=== PATIENT | female | born 1980 | race Caucasian/White ===

== ENCOUNTER 2017-03-21 13:04 | Emergency (ER) | payer MEDICAID, OTHER ==
--- NOTE | 2017-03-21 13:34 | EDM.PDOC ---
ED HPI GENERAL MEDICAL PROBLEM - General Chief Complaint: Lower Extremity Injury/Pain Stated Complaint: LT LEG HURTS Time Seen by Provider: 03/21/17 13:45 Source of Information: Reports: Patient History Limitations: Reports: No Limitations - History of Present Illness INITIAL COMMENTS - FREE TEXT/NARRATIVE: HISTORY AND PHYSICAL: History of present illness: [Patient comes to the emergency room complaining of left knee pain. She moved to the area from [place] on Saturday and has not yet established primary medical care. 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 She jumped from the bed of the truck to the ground and felt her knee twist. She has had pain and swelling to her left knee since that time. She was evaluated in the [facility] ER at the time of the incident and had negative x-rays. She was advised to follow-up with a local orthopedist for an MRI. She did not do this and instead decided to moved to [place]. She complains of pain to the medial aspect of her left knee and a sensation that her knee could give out at anytime. She denies numbness and tingling down her leg or into her foot. Has no other complaints or concerns at this time. She has been using a knee immobilizer but she does not wear it to the emergency room today.] Review of systems: As per history of present illness and below otherwise all systems reviewed and negative. Past medical history: As per history of present illness and as reviewed below otherwise noncontributory. Surgical history: As per history of present illness and as reviewed below otherwise noncontributory. Social history: No reported history of drug or alcohol abuse. Family history: As per history of present illness and as reviewed below otherwise noncontributory. Physical exam: HEENT: Atraumatic, normocephalic. Extremities: Mild swelling to patellar area of left knee. She is tender with palpation over medial and lateral knee worse medially. No instability. Anterior posterior drawer test is negative. negative for cords or calf pain. Neurovascular unremarkable. Neuro: Awake, alert, oriented. Motor and sensory unremarkable throughout. Exam nonfocal. Diagnostics: [Left knee x-ray Impression: [Left knee pain] Plan: [Reviewed with patient that her knee x-ray shows moderate suprapatellar joint effusion and no bony abnormality. Recommended that she follow-up with the orthopedist. Anti-inflammatories in the meantime, rest ice elevate and wear knee immobilizer. She is in agreement with today's plan all questions are answered and concerns are addressed.] Definitive disposition and diagnosis as appropriate pending reevaluation and review of above. Left Knee Pain Score (Numeric/FACES): 5 - Related Data Allergies Allergy/AdvReac Type Severity Reaction Status Date / Time cephalexin Allergy Nausea Unverified 03/21/17 13:33 cephalexin monohydrate Allergy Rash Verified 03/21/17 13:33 [From Keflex] ketorolac tromethamine Allergy Rash Verified 03/21/17 13:33 [From Toradol] Home Meds: Home Meds Gabapentin [Neurontin] 100 mg PO TID 02/14/15 [History] traMADol HCl [Tramadol HCl] 50 mg PO Q6H PRN 02/14/15 [History] Albuterol Sulfate [Albuterol Sulfate HFA] 8.5 gm IH PRN 03/02/15 [History] DULoxetine [Cymbalta] 60 mg PO DAILY 03/02/15 [History] Past Medical History - Past Health History Medical/Surgical History: Denies Medical/Surgical History Other Musculoskeletal History: lunbar disk fracture 2014 - Past Surgical History Other Musculoskeletal Surgeries/Procedures:: disc removed Social & Family History - Tobacco Use Smoking Status *Q: Unknown Ever Smoked Years of Tobacco use: 10 Packs/Tins Daily: 0.5 Second Hand Smoke Exposure: Yes - Alcohol Use Days Per Week of Alcohol Use: 0 Number of Drinks Per Day: 1 Total Drinks Per Week: 0 - Recreational Drug Use Recreational Drug Use: No - Living Situation & Occupation Living situation: Reports: with Family, Occupation: Employed Review of Systems - Review of Systems Review Of Systems: ROS reveals no pertinent complaints other than HPI. ED EXAM, GENERAL - Physical Exam Exam: See Below Course - Vital Signs Last Recorded V/S: Last Vital Signs Temp 98.1 F 03/21/17 15:46 Pulse 90 03/21/17 15:46 Resp 16 03/21/17 15:46 BP 118/72 03/21/17 15:46 Pulse Ox 98 03/21/17 15:46 - Orders/Labs/Meds Orders: Active Orders 24 hr Category Date Time Status Knee 3V Lt [CR] Stat Exams 03/21/17 13:45 Taken Departure - Departure Time of Disposition: 15:15 Disposition: Home, Self-Care 01 Condition: Good Clinical Impression: Left knee pain - Discharge Information Instructions: Knee Pain Referrals: PCP,None [Primary Care Provider] - Forms: ED Department Discharge Additional Instructions: The following information is given to patients seen in the emergency department who are being discharged to home. This information is to outline your options for follow-up care. We provide all patients seen in our emergency department with a follow-up referral. The need for follow-up, as well as the timing and circumstances, are variable depending upon the specifics of your emergency department visit. If you don't have a primary care physician on staff, we will provide you with a referral. We always advise you to contact your personal physician following an emergency department visit to inform them of the circumstance of the visit and for follow-up with them and/or the need for any referrals to a consulting specialist. The emergency department will also refer you to a specialist when appropriate. This referral assures that you have the opportunity for follow-up care with a specialist. All of these measure are taken in an effort to provide you with optimal care, which includes your follow-up. Under all circumstances we always encourage you to contact your private physician who remains a resource for coordinating your care. When calling for follow-up care, please make the office aware that this follow-up is from your recent emergency room visit. If for any reason you are refused follow-up, please contact the [facility] emergency department at and asked to speak to the emergency department charge nurse. [facility] [address] [place] [address], [address] [place] [address] Call the above listed clinic to schedule an appointment to follow-up. Alternate Tylenol and ibuprofen for discomfort. Ice, wear your knee brace,keep leg elevated, rest your leg. Return to ER as needed as discussed. - My Orders Last 24 Hours: My Active Orders 03/21/17 13:45 Knee 3V Lt [CR] Stat - Assessment/Plan Last 24 Hours: My Active Orders 03/21/17 13:45 Knee 3V Lt [CR] Stat
[2017-03-21 15:47] VITALS: BP 118/72
--- NOTE | 2017-03-22 10:19 | CR ---
EXAM DATE: 03/21/17 PATIENT'S AGE: 36 Patient: JENNIFER KEVIN Facility: [place], [place] Site . Site : 1980 Study: XRay Knee [id number]/28/2017 2:43:49 PM Ordering Physician: Doctor Jordan Final Report: HISTORY: Pain. FINDINGS: Standing AP and lateral radiographs of the left knee with sunrise view demonstrates maintenance of the joint spaces. There is a moderate suprapatellar joint effusion. No fracture or dislocation is seen. IMPRESSION: Moderate suprapatellar joint effusion without acute bony abnormality. Dictated by Yanet Narvaez MD @ 03/21/2017 2:53:38 PM Dictated by: Yanet Narvaez MD @ 03/21/2017 14:53:44 (Electronic Signature) Report Signed by Proxy. MTDGale
== END 2017-03-21 16:07 | disposition home or self-care (01) ==
LOC: MW.ED 13:04
DX: M25.562 Pain in left knee (principal); Z88.1 Allergy status to other antibiotic agents; Z88.6 Allergy status to analgesic agent; Z79.899 Other long term (current) drug therapy
CPT/HCPCS: 73562-26-LT; 73562-LT; 99282; 99283

== ENCOUNTER 2017-04-17 12:31 | Emergency (ER) | payer MEDICAID ==
[2017-04-17] MEDS ORDERED: Sodium Chloride 0.9% 10 ML Syringe FLUSH PRN (12:42)
[2017-04-17] MEDS ORDERED: Famotidine 20 MG/2 ML SDV IVPUSH ONE (12:42)
[2017-04-17] MEDS ORDERED: Sodium Chloride 0.9% 2.5 ML Syringe FLUSH PRN (12:42)
[2017-04-17] MEDS ORDERED: Ondansetron 4 MG/2 ML SDV IVPUSH ONE (12:42)
[2017-04-17] MEDS ORDERED: Sodium Chloride 0.9% 1,000 ML IV ONE (12:42)
[2017-04-17] MEDS ORDERED: Ketorolac 30 MG/ML SDV IVPUSH ONE (12:42)
--- NOTE | 2017-04-17 12:57 | EDM.PDOC ---
ED HPI GENERAL MEDICAL PROBLEM - General Chief Complaint: Abdominal Pain Stated Complaint: BAD STOMACH PAIN Time Seen by Provider: 04/17/17 12:35 Source of Information: Reports: Patient History Limitations: Reports: No Limitations - History of Present Illness INITIAL COMMENTS - FREE TEXT/NARRATIVE: History of present illness: []Patient started having upper abdominal pain that feels like a "ball" at 8 PM last night. She waited thinking her pain was improved but continued to worsening until she started vomiting. He denies any diarrhea. Patient states she 's had fevers and chills however did not measure a temperature. Patient complains of urinating more than normal but does not have pain with urination and states she has not been drinking much fluids as she continues to vomit. Patient has had her gallbladder removed and denies feeling pain similar to this in the past. Review of systems: As per history of present illness and below otherwise all systems reviewed and negative. Past medical history: As per history of present illness and as reviewed below otherwise noncontributory. Surgical history: As per history of present illness and as reviewed below otherwise noncontributory. Social history: No reported history of drug or alcohol abuse. Family history: As per history of present illness and as reviewed below otherwise noncontributory. Physical exam: General: Well developed, well nourished in NAD HEENT: Atraumatic, normocephalic, pupils reactive, negative for conjunctival pallor or scleral icterus, mucous membranes moist, throat clear, neck supple, nontender, trachea midline. Lungs: Clear to auscultation, breath sounds equal bilaterally, chest nontender. Heart: S1S2, regular, negative for clicks, rubs, or JVD. Abdomen: Soft, nondistended, nontender. Negative for masses or hepatosplenomegaly. Negative for costovertebral tenderness. Pelvis: Stable nontender. Genitourinary: Deferred. Rectal: Deferred. Extremities: Atraumatic, negative for cords or calf pain. Neurovascular unremarkable. Neuro: Awake, alert, oriented. Cranial nerves II through XII unremarkable. Cerebellum unremarkable. Motor and sensory unremarkable throughout. Exam nonfocal. Diagnostics: []Labs and UA checked patient's UA is positive for nitrites Therapeutics: []IV fluids, Pepcid, morphine for pain Impression: []UTI Plan: []Macrobid, Tylenol Motrin for pain Definitive disposition and diagnosis as appropriate pending reevaluation and review of above. Abdominal Pain Score (Numeric/FACES): 10 - Related Data Allergies Allergy/AdvReac Type Severity Reaction Status Date / Time cephalexin Allergy Nausea Verified 04/17/17 12:39 cephalexin monohydrate Allergy Rash Verified 04/17/17 12:39 [From Keflex] ketorolac tromethamine Allergy Rash Verified 04/17/17 12:39 [From Toradol] Home Meds: Home Meds Gabapentin [Neurontin] 100 mg PO TID 02/14/15 [History] traMADol HCl [Tramadol HCl] 50 mg PO Q6H PRN 02/14/15 [History] Albuterol Sulfate [Albuterol Sulfate HFA] 8.5 gm IH PRN 03/02/15 [History] DULoxetine [Cymbalta] 60 mg PO DAILY 03/02/15 [History] Nitrofurantoin Macrocrystal [Macrodantin] 100 mg PO BID #14 capsule 04/17/17 [Rx ] Past Medical History - Past Health History Medical/Surgical History: Denies Medical/Surgical History Other Musculoskeletal History: lunbar disk fracture 2014 - Past Surgical History Other Musculoskeletal Surgeries/Procedures:: disc removed Social & Family History - Family History Family Medical History: Noncontributory - Tobacco Use Smoking Status *Q: Unknown Ever Smoked Years of Tobacco use: 10 Packs/Tins Daily: 0.5 Second Hand Smoke Exposure: Yes - Alcohol Use Days Per Week of Alcohol Use: 0 Number of Drinks Per Day: 1 Total Drinks Per Week: 0 - Recreational Drug Use Recreational Drug Use: No - Living Situation & Occupation Living situation: Reports: with Family, Occupation: Employed ED ROS GENERAL - Review of Systems Review Of Systems: See Below (See history of present illness) ED EXAM, GI/ABD - Physical Exam Exam: See Below (See history of present illness) Course - Vital Signs Last Recorded V/S: Last Vital Signs Temp 36.5 C 04/17/17 12:39 Pulse 87 04/17/17 12:39 Resp 16 04/17/17 12:39 BP 115/74 04/17/17 12:39 Pulse Ox - Orders/Labs/Meds Orders: Active Orders 24 hr Category Date Time Status Sodium Chloride 0.9% [Saline Flush] Med 04/17/17 12:42 Active 10 ml FLUSH ASDIRECTED PRN Sodium Chloride 0.9% [Saline Flush] Med 04/17/17 12:42 Active 2.5 ml FLUSH ASDIRECTED PRN Saline Lock Insert [OM.PC] Stat Oth 04/17/17 12:42 Ordered Medication Orders Sodium Chloride (Saline Flush) 10 ml FLUSH ASDIRECTED PRN PRN Reason: Keep Vein Open Sodium Chloride (Saline Flush) 2.5 ml FLUSH ASDIRECTED PRN PRN Reason: Keep Vein Open Labs: Laboratory Tests 04/17/17 04/17/17 04/17/17 Range/Units 12:50 12:50 13:45 WBC 12.38 H (4.0-11.0) K/uL RBC 4.66 (4.30-5.90) M/uL Hgb 13.6 (12.0-16.0) g/dL Hct 41.0 (36.0-46.0) % MCV 88.0 (80.0-98.0) fL MCH 29.2 (27.0-32.0) pg MCHC 33.2 (31.0-37.0) g/dL RDW Std Deviation 47.3 (28.0-62.0) fl RDW Coeff of Sussy 15 (11.0-15.0) % Plt Count 271 (150-400) K/uL MPV 9.00 (7.40-12.00) fL Neut % (Auto) 74.8 (48.0-80.0) % Lymph % (Auto) 15.0 L (16.0-40.0) % Brule % (Auto) 9.1 (0.0-15.0) % Eos % (Auto) 0.9 (0.0-7.0) % Baso % (Auto) 0.2 (0.0-1.5) % Neut # (Auto) 9.3 H (1.4-5.7) K/uL Lymph # (Auto) 1.9 (0.6-2.4) K/uL Brule # (Auto) 1.1 H (0.0-0.8) K/uL Eos # (Auto) 0.1 (0.0-0.7) K/uL Baso # (Auto) 0.0 (0.0-0.1) K/uL Nucleated RBC % 0.0 /100WBC Nucleated RBCs # 0 K/uL Sodium 134 L (136-146) mmol/L Potassium 3.6 (3.5-5.1) mmol/L Chloride 104 (98-110) mmol/L Carbon Dioxide 24 (21-31) mmol/L BUN 9 (6.0-23.0) mg/dL Creatinine 0.7 (0.6-1.5) mg/dL Est Cr Clr Drug Dosing 100.94 mL/min Estimated GFR (MDRD) > 60.0 ml/min Glucose 103 (60-110) mg/dL Calcium 8.8 (8.8-10.8) mg/dL Total Bilirubin 1.3 (0.1-1.5) mg/dL AST 40 (5-40) IU/L ALT 53 (8-54) IU/L Alkaline Phosphatase 86 (40-150) Total Protein 7.3 (6.0-8.0) g/dL Albumin 3.9 (3.5-5.0) g/dL Globulin 3.4 (2.0-3.5) g/dL Albumin/Globulin Ratio 1.2 L (1.3-2.8) Lipase 18 (7-80) U/L Urine Color YELLOW Urine Appearance SLT CLOUDY Urine pH 6.0 (5.0-8.0) Ur Specific Raven 1.010 (1.001-1.035) Urine Protein NEGATIVE (NEGATIVE) mg/dL Urine Glucose (UA) NEGATIVE (NEGATIVE) mg/dL Urine Ketones NEGATIVE (NEGATIVE) mg/dL Urine Occult Blood NEGATIVE (NEGATIVE) Urine Nitrite POSITIVE H (NEGATIVE) Urine Bilirubin NEGATIVE (NEGATIVE) Urine Urobilinogen 0.2 (<2.0) EU/dL Ur Leukocyte Esterase TRACE (NEGATIVE) Urine RBC 0-1 (0-2/HPF) Urine WBC 1-3 (0-5/HPF) Ur Epithelial Cells FEW (NONE-FEW) Urine Bacteria 2+ H (NEGATIVE) Meds: Medications Generic Name Dose Route Start Last Admin Trade Name Freq PRN Reason Stop Dose Admin Sodium Chloride 10 ml 04/17/17 12:42 Saline Flush FLUSH ASDIRECTED PRN Keep Vein Open Sodium Chloride 2.5 ml 04/17/17 12:42 Saline Flush FLUSH ASDIRECTED PRN Keep Vein Open Discontinued Medications Generic Name Dose Route Start Last Admin Trade Name Elle PRN Reason Stop Dose Admin Famotidine 20 mg 04/17/17 12:42 04/17/17 12:58 Pepcid IVPUSH 04/17/17 12:43 20 mg ONETIME ONE Administration Sodium Chloride 1,000 mls @ 999 mls/hr 04/17/17 12:42 Normal Saline IV 04/17/17 13:42 .Bolus ONE Ketorolac Tromethamine 30 mg 04/17/17 12:42 04/17/17 13:11 Toradol IVPUSH 04/17/17 12:43 Not Given ONETIME ONE Morphine Sulfate 4 mg 04/17/17 14:28 Morphine IVPUSH 04/17/17 14:29 ONETIME ONE Ondansetron HCl 4 mg 04/17/17 12:42 04/17/17 12:58 Zofran IVPUSH 04/17/17 12:43 4 mg ONETIME ONE Administration Departure - Departure Time of Disposition: 14:35 Disposition: Home, Self-Care 01 Condition: Good Clinical Impression: UTI (urinary tract infection) Qualifiers: Urinary tract infection type: site unspecified Hematuria presence: without hematuria Qualified Code(s): N39.0 - Urinary tract infection, site not specified - Discharge Information Prescriptions: Nitrofurantoin Macrocrystal [Macrodantin] 100 mg PO BID #14 capsule Referrals: PCP,None [Primary Care Provider] - Forms: ED Department Discharge Additional Instructions: The following information is given to patients seen in the emergency department who are being discharged to home. This information is to outline your options for follow-up care. We provide all patients seen in our emergency department with a follow-up referral. The need for follow-up, as well as the timing and circumstances, are variable depending upon the specifics of your emergency department visit. If you don't have a primary care physician on staff, we will provide you with a referral. We always advise you to contact your personal physician following an emergency department visit to inform them of the circumstance of the visit and for follow-up with them and/or the need for any referrals to a consulting specialist. The emergency department will also refer you to a specialist when appropriate. This referral assures that you have the opportunity for follow-up care with a specialist. All of these measure are taken in an effort to provide you with optimal care, which includes your follow-up. Under all circumstances we always encourage you to contact your private physician who remains a resource for coordinating your care. When calling for follow-up care, please make the office aware that this follow-up is from your recent emergency room visit. If for any reason you are refused follow-up, please contact the [facility] Emergency Department at and asked to speak to the emergency department charge nurse. Macrobid twice a day, Tylenol or Motrin for pain follow-up with PMD or return if symptoms worsen or change. [facility] [address] [place] [address] - My Orders Last 24 Hours: My Active Orders 04/17/17 12:42 Sodium Chloride 0.9% [Saline Flush] 10 ml FLUSH ASDIRECTED PRN Sodium Chloride 0.9% [Saline Flush] 2.5 ml FLUSH ASDIRECTED PRN Saline Lock Insert [OM.PC] Stat - Assessment/Plan Last 24 Hours: My Active Orders 04/17/17 12:42 Sodium Chloride 0.9% [Saline Flush] 10 ml FLUSH ASDIRECTED PRN Sodium Chloride 0.9% [Saline Flush] 2.5 ml FLUSH ASDIRECTED PRN Saline Lock Insert [OM.PC] Stat
[2017-04-17 13:26] LABS: CHLORIDE,CL 104 mmol/L (98-110); SODIUM,NA 134 mmol/L (136-146)
[2017-04-17] MEDS ORDERED: Morphine 2 MG/ML Syringe IVPUSH ONE (14:28)
[2017-04-17 15:42] VITALS: BP 96/49
== END 2017-04-17 14:37 | disposition home or self-care (01) ==
LOC: MW.ED 12:31
DX: N39.0 Urinary tract infection, site not specified (principal)
CPT/HCPCS: 36415; 80053; 81001; 83690; 85025; 96361; 96374; 96375; 99284; J2270; J2405; J7040

== ENCOUNTER 2017-05-08 10:30 | Day surgery (SDC) | payer MEDICAID ==
[~2017-05-08 10:30] MED LIST: Acetaminophen/HYDROcodone 325-5 MG Tab PO PRN; Clindamycin Phosphate in D5W 900 MG in Premix Bag 1 BAG IV SCH; Lactated Ringers 1,000 ML IV SCH; Lidocaine 1% 20 ML MDV ONE
[2017-05-08] MEDS ORDERED: Lidocaine 2% 5 ML SDV ONE (11:59)
[2017-05-08] MEDS ORDERED: Midazolam 1 MG/ML 2 ML SDV ONE (11:59)
[2017-05-08] MEDS ORDERED: Propofol 200 MG/20 ML SDV ONE ×4 (11:59→15:42)
[2017-05-08] MEDS ORDERED: fentaNYL 100 MCG/2 ML SDV ONE ×3 (11:59→16:17)
[2017-05-08] MEDS ORDERED: Ondansetron 4 MG/2 ML SDV ONE (12:00)
--- NOTE | 2017-05-08 12:00 | PCM.PREANE ---
Preanesthetic Assessment - Procedure Proposed Procedure: Left knee arthroscopic repair and ACL reconstruction - Anesthesia/Transfusion/Family Hx Anesthesia History: Prior Anesthesia Without Reaction Other Type of Anesthesia Reaction Comment: "my mother has a hard time breathing under anesthesia" Transfusion History: No Prior Transfusion(s) Additional History: 4 weeks s/p quitting smoking - Review of Systems General: Other (pain in left knee) Pulmonary: Other (former smoker) Cardiovascular: No Symptoms Gastrointestinal: No Symptoms Neurological: Gait Disturbance (due to knee-left) Other: Reports: None - Physical Assessment NPO Status Date: 05/07/17 NPO Status Time: 23:00 O2 Sat by Pulse Oximetry: 97 Respiratory Rate: 16 Vital Signs: Last Vital Signs Temp 98.4 F 05/08/17 11:27 Pulse 77 05/08/17 11:27 Resp 16 05/08/17 11:27 BP 89/52 L 05/08/17 11:27 Pulse Ox 97 05/08/17 11:27 Height: 5 ft 5 in Weight: 204 lb ASA Class: 2 Mental Status: Alert & Oriented x3 Airway Class: Mallampati = 1 Dentition: Reports: Normal Dentition, Wind Point(s) (frontal uppers) Thyro-Mental Finger Breadths: 4 Mouth Opening Finger Breadths: 3 ROM/Head Extension: Full Lungs: Clear to Auscultation, Normal Respiratory Effort Cardiovascular: Regular Rate, Regular Rhythm, No Murmurs - Allergies Allergies/Adverse Reactions: Allergies Allergy/AdvReac Type Severity Reaction Status Date / Time cephalexin Allergy Nausea Verified 05/02/17 09:57 cephalexin monohydrate Allergy Nausea Verified 05/02/17 09:55 [From Keflex] ketorolac tromethamine Allergy Headache Verified 05/02/17 09:55 [From Toradol] - Blood Blood Available: No Product(s) Available: None - Anesthesia Plan Pre-Op Medication Ordered: None - Acknowledgements Anesthesia Type Planned: General Anesthesia Pt an Appropriate Candidate for the Planned Anesthesia: Yes Alternatives and Risks of Anesthesia Discussed w Pt/Guardian: Yes Pt/Guardian Understands and Agrees with Anesthesia Plan: Yes PreAnesthesia Questionnaire - Past Health History Medical/Surgical History: Denies Medical/Surgical History HEENT History: Reports: Allergic Rhinitis, Other (See Below) Other HEENT History: wears glasses, has top front partial Cardiovascular History: Reports: None Respiratory History: Reports: Asthma Gastrointestinal History: Reports: None Genitourinary History: Reports: None [employer] History: Reports: Musculoskeletal History: Reports: Fracture Other Musculoskeletal History: hx of fx collarbone and rt arm Neurological History: Reports: Migraines Psychiatric History: Reports: Depression Endocrine/Metabolic History: Reports: Obesity/BMI 30+ Dermatologic History: Reports: Eczema - Past Surgical History Head Surgeries/Procedures: Reports: None HEENT Surgical History: Reports: None GI Surgical History: Reports: Cholecystectomy Female Surgical History: Reports: Tubal Ligation Neurological Surgical History: Reports: Lumbar Spine Other Neurological Surgeries/Procedures: hx back surgery Other Musculoskeletal Surgeries/Procedures:: disc removed - SUBSTANCE USE Smoking Status *Q: Former Smoker Tobacco Use Within Last Twelve Months: Cigarettes Second Hand Smoke Exposure: Yes Days Per Week of Alcohol Use: 0 Number of Drinks Per Day: 1 Total Drinks Per Week: 0 Recreational Drug Use History: No - HOME MEDS Home Medications: Home Meds Albuterol Sulfate [Albuterol Sulfate HFA] 1 - 2 puff IH ASDIRECTED PRN 03/02/15 [History] Diclofenac Sodium [Voltaren] 75 mg PO BID PRN 05/02/17 [History] Ibuprofen [Motrin] 4 tab PO ASDIRECTED PRN 05/02/17 [History] - CURRENT (IN HOUSE) MEDS Current Meds: Current Medications Hydrocodone Bitart/Acetaminophen ([place] 325-5 Mg) 1 - 2 tab PO Q4H PRN PRN Reason: Pain Lactated Ringer's (Ringers, Lactated) 1,000 mls @ 100 mls/hr IV ASDIRECTED [facility] Last Admin: 05/08/17 11:15 Dose: 100 mls/hr Clindamycin Phosphate 900 mg/ (Premix) 50 mls @ 100 mls/hr IV ONCALL [facility] Last Admin: 05/08/17 11:24 Dose: 100 mls/hr Ketorolac Tromethamine (Toradol) 10 mg PO Q6H [facility] Stop: 05/13/17 08:01 Discontinued Medications Lidocaine HCl (Xylocaine 1%) Confirm Administered Dose 20 ml .ROUTE .STK-MED ONE Stop: 05/07/17 15:03
[2017-05-08] MEDS ORDERED: fentaNYL 250 MCG/5 ML SDV ONE (12:01)
[2017-05-08] MEDS ORDERED: Succinylcholine/Normal Saline 200 MG/10 ML Syringe ONE (12:01)
[2017-05-08] MEDS ORDERED: HYDROmorphone 2 MG/ML Syringe ONE (12:05)
[2017-05-08] MEDS ORDERED: HYDROmorphone 2 MG/ML Syringe IVPUSH ONE (15:20)
[2017-05-08] MEDS ORDERED: Acetaminophen/HYDROcodone 325-10 MG Tab PO PRN (16:55)
[2017-05-08] MEDS ORDERED: Promethazine 25 MG/ML SDV IM ONE (17:02)
--- NOTE | 2017-05-08 17:18 | PCM.OPNOTE ---
- General Post-Op/Procedure Note Date of Surgery/Procedure: 05/08/17 Operative Procedure(s): L knee arthroscopy with arthroscopically aided ACL reconstruction using autograft (quad tendon) Post-Op Diagnosis: L knee acl tear Anesthesia Technique: General ET Tube Primary Surgeon: Eun Grayson Metal Tile Lather: Christ Aldana in mLs: 20 Condition: Good Free Text/Narrative:: we=[id number] min #[id number]
[2017-05-08] MEDS: fentaNYL 100 MCG/2 ML SDV IVPUSH PRN ×2 (17:30→17:37)
--- NOTE | 2017-05-08 17:49 | PCM.POSTAN ---
POST ANESTHESIA ASSESSMENT - MENTAL STATUS Mental Status: Alert, Oriented - RESPIRATORY Respiratory Status: Respiratory Rate WNL, Airway Patent, O2 Saturation Stable - CARDIOVASCULAR CV Status: Pulse Rate WNL, Blood Pressure Stable - GASTROINTESTINAL GI Status: Nauseau (treated with Zofran and Phenergan) - PAIN Pain Score: 5 - POST OP HYDRATION Hydration Status: Adequate & Stable
[2017-05-08] MEDS: Ketorolac 10 MG Tab PO SCH ×2 (18:03→18:04)
[2017-05-08] MEDS ORDERED: Ketorolac 30 MG/ML SDV IVPUSH ONE (20:55)
[2017-05-08] MEDS ORDERED: Ondansetron 4 MG/2 ML SDV IVPUSH ONE (20:56)
--- NOTE | 2017-05-08 20:56 | PCM48HPAN ---
Post Anesthesia Note - EVALUATION WITHIN 48HRS OF ANESTHETIC Vital Signs in Normal Range: Yes Patient Participated in Evaluation: Yes Respiratory Function Stable: Yes Airway Patent: Yes Cardiovascular Function Stable: Yes Hydration Status Stable: Yes Pain Control Satisfactory: Yes Nausea and Vomiting Control Satisfactory: Yes Mental Status Recovered: Yes
[2017-05-08 21:54] VITALS: BP 109/71
--- NOTE | 2017-05-08 22:22 | OR ---
SURGEON: Eun Grayson MD DATE OF PROCEDURE: 05/08/2017 PREOPERATIVE DIAGNOSIS: Left knee ACL tear. POSTOPERATIVE DIAGNOSIS: Left knee ACL tear. PROCEDURE: Left knee arthroscopy with arthroscopically aided anterior cruciate ligament reconstruction using autograft (quad tendon). TUMBLING AND ROLLING SUPERVISOR: Christ Aldana PA-C. ANESTHESIA: General. ESTIMATED BLOOD LOSS: 10 mL. TOURNIQUET TIME: 116 minutes. COMPLICATIONS: None. DVT PROPHYLAXIS: PAS boot to the nonoperative leg. IMPLANTS USED: Arthrex TightRope fixation system for ACL reconstruction. BRIEF HISTORY: Leelee is a 36-year-old female who injured her left knee. An MRI did confirm a tear of the ACL. She was treated initially with physical therapy. She continued to have episodes of instability. Due to her lack of response to conservative treatment, I did recommend surgical intervention. The risks and goals of the procedure were discussed with the patient and were documented preoperatively. She agreed to proceed. DESCRIPTION OF PROCEDURE: The patient was properly identified and brought to the operating room. She was transferred from the OR cart and placed on the operating room table in a supine position. General anesthesia was administered. After adequate anesthesia was obtained, a well-padded tourniquet was applied to the left lower extremity. The left lower extremity was then prepped in a standard fashion using ChloraPrep solution. It was then sterilely draped. A time-out was performed to ensure correct site and procedure. Preoperative antibiotics were given. The surgical site had been marked preoperatively. An Esmarch was used to exsanguinate the left lower extremity, and the tourniquet was inflated to 250 mmHg. A lateral portal arthrotomy was established. Blunt trocar and cannula were introduced into the suprapatellar pouch. Camera, inflow, and outflow were assembled. No significant synovitis was noted. The patellofemoral joint was then visualized. She had some chondromalacia along the central portion of the patella consistent with grade 2. The trochlea showed no significant degenerative findings. The patella appeared to track centrally. I then extended down the lateral and medial gutter. No loose bodies were identified. I then entered the medial compartment. A medial portal arthrotomy was established. A blunt probe was inserted. The medial meniscus showed no signs of instability or tearing. The joint surfaces showed no significant degenerative findings. I then entered the notch. The ACL did show a complete tear. There was no attachment to the lateral femoral condyle. The PCL appeared intact. I then entered the lateral compartment. The lateral meniscus was probed. The cartilage showed no significant degenerative changes. No tearing of the meniscus was found. I elected to proceed with anterior cruciate ligament reconstruction. A portion of the ACL was removed. The insertion point on the tibia was kept to help with proprioceptive fibers. The wall of the lateral femoral condyle was then cleared. A notchplasty was performed to ensure better visualization. A large curette was used to identify the posterior aspect of the femur. All soft tissue was cleared. All instruments were then removed from the knee joint. I then turned my attention to the quadriceps tendon. The border of the VMO was identified along with the superior border of the patella. An incision was made extending from the superior border of the patella proximally. The subcutaneous tissues were dissected down to the level of the tendon. I was able to use retractors to easily visualize the course of the quadriceps tendon. The center of the lateral portion was then identified. A 9 mm parallel blade was used to incise the quadriceps tendon proximally. The portion of the quadriceps tendon attached to the patella was then sharply dissected with a #15 blade scalpel. I was able to dissect free the distal end of the quadriceps tendon at the attachment to the patella. 20 mm was then identified, and a whipstitch was used to prepare the distal end. The quadriceps tendon was then dissected proximally and was cut at approximately 70 mm of length. A small rent in the capsule was noted along the distal portion of the incision, and this was closed with 0 Vicryl. The quadriceps tendon was not re-approximated with suture. The subcutaneous tissues were closed with 2-0 Vicryl, and the skin was closed with a running 4-0 Monocryl suture. We then turned our attention back to the knee. The knee scope was again inserted into the knee. The proximal tibial guide was used. An incision was made over the medial aspect of the proximal tibia, and the subcutaneous tissues were dissected down to the level of the bone. The periosteum was elevated. The guide was then placed. This was placed approximately 7 mm anterior to the PCL, parallel to the anterior horn of the lateral meniscus. A guide pin was placed. It was felt that the guide pin position was appropriate. The quadriceps tendon graft was prepared in the usual fashion on the back table. It did measure a diameter of 10 mm. The 10 mm reamer was then passed over the guide pin into the proximal tibia. All instruments were then removed. The posterior edge of the graft tunnel was prepared with a rasp. A shaver was placed to remove any loose bony debris. I then moved my camera to the medial portal. The medial wall of the lateral femoral condyle was then identified. The flip cutter guide was placed. A small incision was made through the IT band over the lateral aspect of the upper thigh. The guide pin was passed. Its position was checked, and it was felt to be in the appropriate position. The 10 mm flip cutter was then deployed, and a 30 mm tunnel was made through the femur. The cannula was kept in place as the loop suture was passed intra-articularly. Because of the graft's robustness and size, I elected to open the outer cortex of the tibia with an 11 mm reamer. This was performed without difficulty. The suture was then passed through the proximal tibia. The graft was then passed. The Endobutton was identified and was passed underneath the iliotibial band. This was placed flush to the cortex of the femur. C-arm imaging confirmed adequate deployment of the Endobutton. The graft was then passed into the femoral tunnel approximately 20 mm. We were able to visualize the position within the tibia as well, and it was felt that there was adequate graft in both the femur and tibia. Tension was applied to the tibial aspect of the graft, and the knee was taken through a range of motion. No pistoning was noted. There appeared to be no impingement with the ACL or notch. The knee was then brought into full extension. A hyperextension force was applied. The TightRope button was cinched to the proximal tibia anterior cortex. A Silvana's maneuver was performed which showed no anterior translation of the tibia. The sutures were tied over the TightRope button. Tourniquet was then deflated. The proximal tibia and subcutaneous tissues were closed with 2-0 Vicryl. The skin was closed with running 4-0 Monocryl suture. 4-0 nylon was used to close the portal sites, and subcutaneous tissues of the distal femoral incision were closed with 2-0 Vicryl. 4-0 Monocryl suture was used to close the skin on the remaining wounds, and Steri-Strips and Benzoin were applied. Xeroform gauze was placed over the wounds, and a bulky dressing was placed. She was placed into a [place]-type brace locking the knee in full extension. She was awakened from her anesthetic and transferred back to the operating room cart. She was brought to the recovery room in stable condition. All needle and sponge counts were correct. ALMA WARD /[id number] MICHA
--- NOTE | 2017-05-09 12:03 | CR ---
EXAMINATION: Left knee HISTORY: Surgery COMPARISON: MRI dated 04/05/2017 TECHNIQUE: Single fluoroscopic image provided FINDINGS/IMPRESSION: Single operative control film demonstrates postsurgical changes secondary to ACL repair.
== END 2017-05-08 21:45 | disposition home or self-care (01) ==
LOC: MW.SDS 10:30 → MW.ICU 18:23 → MW.SDS 21:45
PROVIDERS: ATTEND Orthopaedic Surgery
DX: S83.512A Sprain of anterior cruciate ligament of left knee, initial encounter (principal); M22.42 Chondromalacia patellae, left knee; F32.9 Major depressive disorder, single episode, unspecified; G43.909 Migraine, unspecified, not intractable, without status migrainosus; E66.9 Obesity, unspecified; Z68.33 Body mass index [BMI] 33.0-33.9, adult; Z88.6 Allergy status to analgesic agent; Z88.1 Allergy status to other antibiotic agents; Z87.891 Personal history of nicotine dependence; Z83.3 Family history of diabetes mellitus; Z98.890 Other specified postprocedural states; J45.909 Unspecified asthma, uncomplicated; Z79.899 Other long term (current) drug therapy; Z90.49 Acquired absence of other specified parts of digestive tract; Z98.51 Tubal ligation status
CPT/HCPCS: 29888; 76000; 81025; A9270; J1170; J2250; J2405; J2550; J3010; J7120; 01400; 88304; C1776; J2704

== ENCOUNTER 2017-07-10 10:39 | Emergency (ER) | payer MEDICAID ==
[2017-07-10 11:15] VITALS: BP 103/66
--- NOTE | 2017-07-10 11:34 | EDM.PDOC ---
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 Past medical history: As per history of present illness and as reviewed below otherwise noncontributory. Surgical history: As per history of present illness and as reviewed below otherwise noncontributory. Social history: No reported history of drug or alcohol abuse. Family history: As per history of present illness and as reviewed below otherwise noncontributory. Physical exam: HEENT: Atraumatic, normocephalic, pupils reactive, negative for conjunctival pallor or scleral icterus, mucous membranes moist, throat clear, neck supple, nontender, trachea midline. Lungs: Clear to auscultation, breath sounds equal bilaterally, chest nontender. Heart: S1S2, regular, negative for clicks, rubs, or JVD. Abdomen: Soft, nondistended, nontender. Negative for masses or hepatosplenomegaly. Negative for costovertebral tenderness. Pelvis: Stable nontender. Genitourinary: No mass scar or lesion tampon was removed without complication or complaint Rectal: Deferred. Extremities: Atraumatic, negative for cords or calf pain. Neurovascular unremarkable. Neuro: Awake, alert, oriented. Cranial nerves II through XII unremarkable. Cerebellum unremarkable. Motor and sensory unremarkable throughout. Exam nonfocal. 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 Lower Abdominal Pain Score (Numeric/FACES): 5 - Related Data Allergies Allergy/AdvReac Type Severity Reaction Status Date / Time cephalexin Allergy Nausea Verified 07/10/17 11:17 cephalexin monohydrate Allergy Nausea Verified 07/10/17 11:17 [From Keflex] ketorolac tromethamine Allergy Headache Verified 07/10/17 11:17 [From Toradol] Home Meds: Home Meds Albuterol Sulfate [Albuterol Sulfate HFA] 1 - 2 puff IH ASDIRECTED PRN 03/02/15 [History] Ibuprofen [Motrin] 4 tab PO ASDIRECTED PRN 05/02/17 [History] Past Medical History - Past Health History Medical/Surgical History: Denies Medical/Surgical History HEENT History: Reports: Allergic Rhinitis, Other (See Below) Other HEENT History: wears glasses, has top front partial Cardiovascular History: Reports: None Respiratory History: Reports: Asthma Gastrointestinal History: Reports: None Genitourinary History: Reports: None 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: Musculoskeletal History: Reports: Fracture Other Musculoskeletal History: hx of fx collarbone and rt arm Neurological History: Reports: Migraines Psychiatric History: Reports: Depression Endocrine/Metabolic History: Reports: Obesity/BMI 30+ Dermatologic History: Reports: Eczema - Past Surgical History Head Surgeries/Procedures: Reports: None HEENT Surgical History: Reports: None GI Surgical History: Reports: Cholecystectomy Female Surgical History: Reports: Tubal Ligation Neurological Surgical History: Reports: Lumbar Spine Other Neurological Surgeries/Procedures: hx back surgery Other Musculoskeletal Surgeries/Procedures:: disc removed Social & Family History - Family History Family Medical History: Noncontributory - Tobacco Use Smoking Status *Q: Current Every Day Smoker Years of Tobacco use: 15 Packs/Tins Daily: 0.4 Used Tobacco, but Quit: Yes Second Hand Smoke Exposure: No - Caffeine Use Caffeine Use: Reports: Soda - Alcohol Use Days Per Week of Alcohol Use: 0 Number of Drinks Per Day: 1 Total Drinks Per Week: 0 - Recreational Drug Use Recreational Drug Use: No - Living Situation & Occupation Living situation: Reports: with Family, Occupation: Employed ED ROS GENERAL - Review of Systems Review Of Systems: ROS reveals no pertinent complaints other than HPI. ED EXAM, GENERAL - Physical Exam Exam: See Below Course - Vital Signs Last Recorded V/S: Last Vital Signs Temp 96.7 F 07/10/17 11:08 Pulse 88 07/10/17 11:08 Resp 16 07/10/17 11:08 BP 103/66 07/10/17 11:08 Pulse Ox 99 07/10/17 11:08 Departure - Departure Time of Disposition: 11:34 Disposition: Home, Self-Care 01 Condition: Good Clinical Impression: Foreign body - Discharge Information Referrals: Arash Sherwood MD [Primary Care Provider] - Additional Instructions: Medication as prescribed Return if symptoms persist or worsen or if fever nausea vomiting chills sweats should they develop Follow-up with primary care as needed The following information is given to patients seen in the emergency department who are being discharged to home. This information is to outline your options for follow-up care. We provide all patients seen in our emergency department with a follow-up referral. The need for follow-up, as well as the timing and circumstances, are variable depending upon the specifics of your emergency department visit. If you don't have a primary care physician on staff, we will provide you with a referral. We always advise you to contact your personal physician following an emergency department visit to inform them of the circumstance of the visit and for follow-up with them and/or the need for any referrals to a consulting specialist. The emergency department will also refer you to a specialist when appropriate. This referral assures that you have the opportunity for follow-up care with a specialist. All of these measure are taken in an effort to provide you with optimal care, which includes your follow-up. Under all circumstances we always encourage you to contact your private physician who remains a resource for coordinating your care. When calling for follow-up care, please make the office aware that this follow-up is from your recent emergency room visit. If for any reason you are refused follow-up, please contact the [facility] emergency department at and asked to speak to the emergency department charge nurse.
== END 2017-07-10 11:38 | disposition home or self-care (01) ==
LOC: MW.ED 10:39
DX: T19.2XXA Foreign body in vulva and vagina, initial encounter (principal); F17.210 Nicotine dependence, cigarettes, uncomplicated; Z88.1 Allergy status to other antibiotic agents; Z88.6 Allergy status to analgesic agent
CPT/HCPCS: 99283

== ENCOUNTER 2019-07-05 00:09 | Emergency (ER) | payer SELFPAY ==
--- NOTE | 2019-07-05 00:41 | EDM.PDOC ---
ED HPI GENERAL MEDICAL PROBLEM - General Chief Complaint: General Stated Complaint: MED. CLEARANCE Time Seen by Provider: 07/05/19 00:33 Source of Information: Reports: Patient History Limitations: Reports: No Limitations - History of Present Illness INITIAL COMMENTS - FREE TEXT/NARRATIVE: 38-year-old female who needs her medication for medical clearance Onset: Today Duration: Minutes: Severity: Mild Worsens with: Reports: Other - Related Data Allergies Allergy/AdvReac Type Severity Reaction Status Date / Time cephalexin Allergy Nausea Verified 07/05/19 00:45 cephalexin monohydrate Allergy Nausea Verified 07/05/19 00:45 [From Keflex] ketorolac tromethamine Allergy Headache Verified 07/05/19 00:45 [From Toradol] Home Meds: Home Meds Albuterol Sulfate [Albuterol Sulfate HFA] 1 - 2 puff IH ASDIRECTED PRN 03/02/15 [History] Ibuprofen [Motrin] 4 tab PO ASDIRECTED PRN 05/02/17 [History] Montelukast [Singulair] 10 mg PO ASDIRECTED 07/05/19 [History] Salmeterol Xinafoate [Serevent Diskus] 1 puff INH Q12H 07/05/19 [History] hydroCHLOROthiazide [Hydrochlorothiazide] 25 mg PO ASDIRECTED 07/05/19 [History] Past Medical History - Past Health History Medical/Surgical History: Denies Medical/Surgical History HEENT History: Reports: Allergic Rhinitis, Other (See Below) Other HEENT History: wears glasses, has top front partial Cardiovascular History: Reports: None Respiratory History: Reports: Asthma Gastrointestinal History: Reports: None Genitourinary History: Reports: None 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: Reports: Fracture Other Musculoskeletal History: hx of fx collarbone and rt arm Neurological History: Reports: Migraines Psychiatric History: Reports: Depression Endocrine/Metabolic History: Reports: Obesity/BMI 30+ Dermatologic History: Reports: Eczema - Past Surgical History Head Surgeries/Procedures: Reports: None HEENT Surgical History: Reports: None GI Surgical History: Reports: Cholecystectomy Female Surgical History: Reports: Tubal Ligation Neurological Surgical History: Reports: Lumbar Spine Other Neurological Surgeries/Procedures: hx back surgery Other Musculoskeletal Surgeries/Procedures:: disc removed Social & Family History - Family History Family Medical History: Noncontributory - Caffeine Use Caffeine Use: Reports: Soda - Living Situation & Occupation Living situation: Reports: with Family, Occupation: Employed ED ROS GENERAL - Review of Systems Review Of Systems: Comprehensive ROS is negative, except as noted in HPI. Constitutional: Reports: No Symptoms HEENT: Reports: No Symptoms Respiratory: Reports: No Symptoms Cardiovascular: Reports: No Symptoms Endocrine: Reports: No Symptoms GI/Abdominal: Reports: No Symptoms : Reports: No Symptoms Musculoskeletal: Reports: No Symptoms Skin: Reports: No Symptoms Neurological: Reports: No Symptoms Psychiatric: Reports: No Symptoms Hematologic/Lymphatic: Reports: No Symptoms Immunologic: Reports: No Symptoms ED EXAM, GENERAL - Physical Exam Exam: See Below Exam Limited By: No Limitations General Appearance: Alert, WD/WN, No Apparent Distress, Anxious Eye Exam: Bilateral Eye: Normal Fundi, Normal Inspection, PERRL Nose: Normal Inspection, Normal Mucosa Throat/Mouth: Normal Inspection, Normal Lips, No Airway Compromise Head: Atraumatic, Normocephalic Neck: Normal Inspection, Supple, Non-Tender Respiratory/Chest: No Respiratory Distress, Lungs Clear Cardiovascular: Normal Peripheral Pulses, Regular Rate, Rhythm, No Rub GI/Abdominal: Normal Bowel Sounds, Soft, Non-Tender, No Mass, Pelvis Stable (Female) Exam: Normal External Exam Rectal (Female) Exam: Normal Exam, Normal Rectal Tone Back Exam: Normal Inspection, Full Range of Motion Extremities: Normal Inspection, Normal Range of Motion Neurological: Alert, Oriented, CN II-XII Intact, Normal Cognition, No Motor/ Sensory Deficits Psychiatric: Normal Affect, Normal Mood Skin Exam: Warm, Dry, Intact, Normal Color Lymphatic: No Adenopathy Departure - Departure Time of Disposition: 01:21 Disposition: DC/Tfer to Hospice - Home 50 Condition: Good Clinical Impression: Hypertension screening - Discharge Information *PRESCRIPTION DRUG MONITORING PROGRAM REVIEWED*: Yes *COPY OF PRESCRIPTION DRUG MONITORING REPORT IN PATIENT STAN: Yes Referrals: PCP,None [Primary Care Provider] -
[2019-07-05 00:59] VITALS: BP 108/79; PULSE 94
== END 2019-07-05 02:00 ==
LOC: MW.ED 00:09
DX: Z13.6 Encounter for screening for cardiovascular disorders (principal); E66.9 Obesity, unspecified; Z88.1 Allergy status to other antibiotic agents; Z88.6 Allergy status to analgesic agent; Z79.899 Other long term (current) drug therapy; Z90.49 Acquired absence of other specified parts of digestive tract; Z98.51 Tubal ligation status
CPT/HCPCS: 99282; 99283

== ENCOUNTER 2023-07-30 09:18 | Emergency (ER) | payer SELFPAY ==
[2023-07-30 11:50] LABS: BASOPHILS ABSOLUTE AUTO 0.03 K/uL (0.00-0.20); BASOPHILS PERCENT AUTO 0.2 % (0.0-1.0); EOSINOPHILS ABSOLUTE AUTO 0.05 K/uL (0.00-0.45); EOSINOPHILS PERCENT AUTO 0.3 % (0.0-6.0); HEMATOCRIT 42.3 % (37.0-47.0); HEMOGLOBIN 13.9 g/dL (12.0-16.0); IMMATURE GRAN PERCENT AUTO 0.6 % (0.0-0.4); LYMPHOCYTES PERCENT AUTO 9.4 % (24.0-44.0); MEAN CORPUSCULAR HEMOGLOBIN 28.7 pg (28.0-32.0); MEAN CORPUSCULAR HGB CONC 32.9 g/dL (32.0-36.0); MEAN CORPUSCULAR VOLUME 87.2 fL (83.0-99.0); MEAN PLATELET VOLUME 9.3 fL (9.4-12.3); MONOCYTES ABSOLUTE AUTO 1.25 K/uL (0.00-0.80); MONOCYTES PERCENT AUTO 7.8 % (0.0-8.0); NEUTROPHILS ABSOLUTE AUTO 13.11 K/uL (1.80-7.70); NEUTROPHILS PERCENT AUTO 81.7 % (41.0-71.0); PLATELET COUNT,PLT 234 K/uL (150-400); RED BLOOD CELL COUNT 4.85 M/uL (4.10-5.30); WHITE BLOOD CELL COUNT,WBC 16.04 K/uL (3.9-11.3)
[2023-07-30 12:01] LABS: A/G RATIO 0.6 (0.9-1.6); ALBUMIN 2.7 g/dL (3.4-5.0); BILIRUBIN TOTAL 0.7 mg/dL (0.2-1.0); CALCIUM 8.3 mg/dL (8.5-10.1); CARBON DIOXIDE,CO2 24.6 mmol/L (21.0-32.0); CREATININE 0.9 mg/dL (0.6-1.0); EST CRCL DRUG DOSING (CG) 74.02 mL/min; POTASSIUM,K 3.4 mmol/L (3.5-5.1)
[2023-07-30] MEDS: Albuterol/Ipratropium 3.0-0.5 MG/3 ML Neb Soln ONE (12:19)
[2023-07-30] MEDS: Ketorolac 30 MG/ML SDV IVPUSH ONE (12:19)
[2023-07-30] MEDS: Acetaminophen 500 MG Tab PO ONE ×2 (12:19→12:43)
[2023-07-30] MEDS: Sodium Chloride 0.9% 1,000 ML IV ONE ×2 (12:20→15:24)
[2023-07-30] MEDS: Acetaminophen 500 MG Tab ONE (12:20)
[2023-07-30] MEDS: Sodium Chloride 0.9% 1,000 ML IV STA (12:42)
[2023-07-30] MEDS: Albuterol/Ipratropium 3.0-0.5 MG/3 ML Neb Soln NEB ONE (12:42)
[2023-07-30] MEDS: Sodium Chloride 0.9% 10 ML Syringe FLUSH PRN (12:43)
[2023-07-30] MEDS: Sodium Chloride 0.9% 2.5 ML Syringe FLUSH PRN (12:43)
[2023-07-30 12:46] LABS: APPEARANCE,URINE SLT CLOUDY; BILIRUBIN,URINE NEGATIVE (NEGATIVE); COLOR,URINE YELLOW; GLUCOSE,URINE NEGATIVE (NEGATIVE); KETONES,URINE NEGATIVE (NEGATIVE); LEUKOCYTE ESTERASE,URINE SMALL (NEGATIVE); NITRITE,URINE POSITIVE (NEGATIVE); OCCULT BLOOD,URINE MODERATE (NEGATIVE); PROTEIN,URINE 30 mg/dL (NEGATIVE); UROBILINOGEN,URINE 0.2 EU/dL (<2.0)
[2023-07-30 12:51] LABS: CORONAVIRUS COVID-19 NAA NEGATIVE (NEGATIVE); INFLUENZA A NAA NEGATIVE (NEGATIVE); INFLUENZA B NAA NEGATIVE (NEGATIVE); RESPIRATORY SYNCYTIAL VIR NAA NEGATIVE (NEGATIVE)
[2023-07-30 12:56] LABS: EPITHELIAL CELLS,URINE MODERATE (NONE-FEW); WBC,URINE 15-25 (0-5/HPF)
[2023-07-30 12:57] LABS: BACTERIA,URINE 2+ (NEGATIVE); MUCUS,URINE MANY (NONE-MOD)
[2023-07-30] MEDS: Ibuprofen 800 MG Tab PO ONE (13:20)
[2023-07-30] MEDS: Iopamidol 755 MG/ML 500 ML Multipack Bottle IVPUSH STA (15:55)
[2023-07-30 17:25] VITALS: BP 96/54
[2023-07-30] MEDS: Ciprofloxacin in D5W 400 MG in Premix Bag 1 BAG IV STA (18:39)
[2023-07-30] MEDS: Morphine 4 MG/ML Syringe IVPUSH ONE (18:44)
[2023-07-31 03:27] VITALS: PULSE 84
== END 2023-07-30 20:20 | disposition home or self-care (01) ==
LOC: MW.ED 09:18
DX: N12 Tubulo-interstitial nephritis, not specified as acute or chronic (principal); E66.9 Obesity, unspecified; Z88.8 Allergy status to other drugs, medicaments and biological substances; Z90.49 Acquired absence of other specified parts of digestive tract; Z68.35 Body mass index [BMI] 35.0-35.9, adult
CPT/HCPCS: 0241U; 36415; 71046; 74177; 80053; 81001; 81025; 85025; 87086; 87088; 87186; 96361; 96365; 96375; 99284; A9270; J0744; J2270; J3490; J7030; Q9967; J7620-GY

== ENCOUNTER 2023-07-31 04:33 | Emergency (ER) | payer SELFPAY ==
[2023-07-31] MEDS: Metoclopramide 10 MG/2 ML SDV IVPUSH ONE (06:18)
[2023-07-31] MEDS: Sodium Chloride 0.9% 1,000 ML IV ONE (06:22)
[2023-07-31] MEDS: Aluminum Hydroxide/Magnesium Hydroxide/Simethicone XS Susp 30 ML Cup PO ONE (09:02)
[2023-07-31 09:03] VITALS: BP 108/64; PULSE 100
== END 2023-07-31 09:45 | disposition home or self-care (01) ==
LOC: MW.ED 04:33
DX: R11.2 Nausea with vomiting, unspecified (principal); E66.9 Obesity, unspecified; F17.210 Nicotine dependence, cigarettes, uncomplicated; Z90.49 Acquired absence of other specified parts of digestive tract; Z88.8 Allergy status to other drugs, medicaments and biological substances; Z68.35 Body mass index [BMI] 35.0-35.9, adult
CPT/HCPCS: 96361; 96374; 99283; A9270; J2765; J7030; 99284

== ENCOUNTER 2023-11-04 19:38 | Emergency (ER) | payer MEDICAID ==
[2023-11-04] MEDS: Sodium Chloride 0.9% 1,000 ML IV ONE (20:22)
[2023-11-04] MEDS: Sodium Chloride 0.9% 2.5 ML Syringe FLUSH PRN (20:23)
[2023-11-04] MEDS: Sodium Chloride 0.9% 10 ML Syringe FLUSH PRN (20:23)
[2023-11-04 20:25] LABS: BASOPHILS ABSOLUTE AUTO 0.04 K/uL (0.00-0.20); BASOPHILS PERCENT AUTO 0.5 % (0.0-1.0); EOSINOPHILS ABSOLUTE AUTO 0.47 K/uL (0.00-0.45); EOSINOPHILS PERCENT AUTO 5.5 % (0.0-6.0); HEMATOCRIT 43.5 % (37.0-47.0); HEMOGLOBIN 14.8 g/dL (12.0-16.0); IMMATURE GRAN ABSOLUTE AUTO 0.02 K/uL (0.00-0.05); IMMATURE GRAN PERCENT AUTO 0.2 % (0.0-0.4); LYMPHOCYTES ABSOLUTE AUTO 2.68 K/uL (1.00-4.80); LYMPHOCYTES PERCENT AUTO 31.1 % (24.0-44.0); MEAN CORPUSCULAR HEMOGLOBIN 29.1 pg (28.0-32.0); MEAN CORPUSCULAR VOLUME 85.6 fL (83.0-99.0); MONOCYTES ABSOLUTE AUTO 0.54 K/uL (0.00-0.80); MONOCYTES PERCENT AUTO 6.3 % (0.0-8.0); NEUTROPHILS ABSOLUTE AUTO 4.86 K/uL (1.80-7.70); NEUTROPHILS PERCENT AUTO 56.4 % (41.0-71.0); PLATELET COUNT,PLT 259 K/uL (150-400); RED BLOOD CELL COUNT 5.08 M/uL (4.10-5.30); WHITE BLOOD CELL COUNT,WBC 8.61 K/uL (3.9-11.3)
[2023-11-04 20:46] LABS: COLOR,URINE YELLOW; GLUCOSE,URINE NEGATIVE (NEGATIVE); KETONES,URINE NEGATIVE (NEGATIVE); LEUKOCYTE ESTERASE,URINE NEGATIVE (NEGATIVE); NITRITE,URINE NEGATIVE (NEGATIVE); OCCULT BLOOD,URINE NEGATIVE (NEGATIVE); PH,URINE 5.5 (5.0-8.0); PROTEIN,URINE NEGATIVE (NEGATIVE); UROBILINOGEN,URINE 0.2 EU/dL (<2.0)
[2023-11-04 20:50] LABS: APPEARANCE,URINE SLT CLOUDY; BILIRUBIN,URINE SMALL (NEGATIVE)
[2023-11-04 21:01] LABS: A/G RATIO 0.8 (0.9-1.6); ALBUMIN 3.4 g/dL (3.4-5.0); BILIRUBIN TOTAL 0.5 mg/dL (0.2-1.0); CALCIUM 8.5 mg/dL (8.5-10.1); CARBON DIOXIDE,CO2 22.8 mmol/L (21.0-32.0); CREATININE 0.8 mg/dL (0.6-1.0); EST CRCL DRUG DOSING (CG) 84.09 mL/min; POTASSIUM,K 3.8 mmol/L (3.5-5.1); PROTEIN TOTAL,TP 7.8 g/dL (6.4-8.2)
[2023-11-04] MEDS: Iopamidol 755 MG/ML 500 ML Multipack Bottle IVPUSH ONE (21:57)
[2023-11-04 23:07] VITALS: BP 104/70; PULSE 75
== END 2023-11-04 23:28 ==
LOC: MW.ED 19:38
DX: J45.909 Unspecified asthma, uncomplicated (principal); R10.31 Right lower quadrant pain; R10.32 Left lower quadrant pain; Z02.89 Encounter for other administrative examinations; E66.9 Obesity, unspecified; Z88.1 Allergy status to other antibiotic agents; Z88.6 Allergy status to analgesic agent; Z88.8 Allergy status to other drugs, medicaments and biological substances; Z79.899 Other long term (current) drug therapy; Z90.49 Acquired absence of other specified parts of digestive tract; Z68.36 Body mass index [BMI] 36.0-36.9, adult
CPT/HCPCS: 36415; 74177; 80053; 81003; 83690; 84703; 85025; 99284; J3490; J7030; Q9967

== ENCOUNTER 2023-11-07 16:33 | Emergency (ER) | payer MEDICAID ==
[2023-11-07] MEDS: Sodium Chloride 0.9% 10 ML Syringe FLUSH PRN (17:12)
[2023-11-07] MEDS: Sodium Chloride 0.9% 2.5 ML Syringe FLUSH PRN (17:12)
[2023-11-07 17:14] LABS: BASOPHILS ABSOLUTE AUTO 0.03 K/uL (0.00-0.20); BASOPHILS PERCENT AUTO 0.3 % (0.0-1.0); EOSINOPHILS ABSOLUTE AUTO 0.07 K/uL (0.00-0.45); EOSINOPHILS PERCENT AUTO 0.8 % (0.0-6.0); HEMATOCRIT 42.4 % (37.0-47.0); HEMOGLOBIN 14.5 g/dL (12.0-16.0); IMMATURE GRAN ABSOLUTE AUTO 0.02 K/uL (0.00-0.05); IMMATURE GRAN PERCENT AUTO 0.2 % (0.0-0.4); LYMPHOCYTES ABSOLUTE AUTO 2.65 K/uL (1.00-4.80); LYMPHOCYTES PERCENT AUTO 29.3 % (24.0-44.0); MEAN CORPUSCULAR HEMOGLOBIN 28.9 pg (28.0-32.0); MEAN CORPUSCULAR HGB CONC 34.2 g/dL (32.0-36.0); MEAN CORPUSCULAR VOLUME 84.6 fL (83.0-99.0); MEAN PLATELET VOLUME 9.1 fL (9.4-12.3); MONOCYTES PERCENT AUTO 6.6 % (0.0-8.0); NEUTROPHILS ABSOLUTE AUTO 5.67 K/uL (1.80-7.70); NEUTROPHILS PERCENT AUTO 62.8 % (41.0-71.0); PLATELET COUNT,PLT 256 K/uL (150-400); RED BLOOD CELL COUNT 5.01 M/uL (4.10-5.30); WHITE BLOOD CELL COUNT,WBC 9.04 K/uL (3.9-11.3)
[2023-11-07 17:43] LABS: A/G RATIO 0.8 (0.9-1.6); ALBUMIN 3.5 g/dL (3.4-5.0); BILIRUBIN TOTAL 0.8 mg/dL (0.2-1.0); CALCIUM 8.7 mg/dL (8.5-10.1); CREATININE 0.8 mg/dL (0.6-1.0); EST CRCL DRUG DOSING (CG) 82.43 mL/min; POTASSIUM,K 3.9 mmol/L (3.5-5.1); PROTEIN TOTAL,TP 7.7 g/dL (6.4-8.2)
[2023-11-07 19:39] VITALS: BP 111/65; PULSE 75
== END 2023-11-07 19:37 ==
LOC: MW.ED 16:33
DX: R10.11 Right upper quadrant pain (principal); J45.909 Unspecified asthma, uncomplicated; F17.210 Nicotine dependence, cigarettes, uncomplicated; Z75.8 Other problems related to medical facilities and other health care; Z88.1 Allergy status to other antibiotic agents; Z88.5 Allergy status to narcotic agent; Z79.51 Long term (current) use of inhaled steroids; Z90.49 Acquired absence of other specified parts of digestive tract
CPT/HCPCS: 36415; 76705; 80053; 81025; 83690; 85025; 99284; J3490; 99282

== ENCOUNTER 2024-02-24 19:23 | Emergency (ER) | payer MEDICAID | END 2024-02-24 20:05 | disposition left against medical advice (07) | LOC: MW.ED 19:23 | DX: Z53.21 Procedure and treatment not carried out due to patient leaving prior to being seen by health care provider (principal) ==

== ENCOUNTER 2024-09-07 16:16 | Emergency (ER) | payer MEDICAID | END 2024-09-07 17:23 | disposition left against medical advice (07) | LOC: MW.ED 16:16 | DX: Z53.21 Procedure and treatment not carried out due to patient leaving prior to being seen by health care provider (principal) ==